=== PATIENT | female | born 1960 | race African-American/Black ===

== ENCOUNTER 2016-06-08 08:29 | Emergency (ER) | payer OTHER ==
[2016-06-08 08:53] LABS: Hematocrit 47.4 % (37.0-47.0); Hemoglobin 17.3 gm/dL (12.5-16.0); Mean Cell Volume 81.9 fl (78-100); Mean Corpuscular Hemoglobin 29.9 pg (27-31); Mean Corpuscular Hgb Conc 36.5 g/dl (32-36); Mean Platelet Volume 9.7 fl (6.0-9.5); Neutrophil % 30.5 % (42-75.0); Platelet Count 203 K/mm3 (150-450); Red Blood Count 5.79 M/mm3 (4.2-5.4); Red Cell Distribution Width 12.7 % (11.5-14.0); White Blood Count 3.2 K/mm3 (4.0-10.5)
[2016-06-08 09:11] LABS: Albumin * 3.9 gm/dl (3.4-5.0); Anion Gap 17.1 mmol/L (6.8-13.8); BUN/Creatinine Ratio 14.7 (9.0-21.6); Bilirubin, Total 0.5 mg/dL (0.0-1.1); Ca. Corrected For Albumin 8.3 mg/dL (8.4-10.2); Calcium * 8.5 mg/dL (7.9-10.9); Carbon Dioxide 23.7 mmol/L (24-32.6); Potassium 3.8 mmol/L (3.4-4.6); Total Protein 8.1 gm/dL (6.2-8.2)
[2016-06-08] MEDS ORDERED: DIATRIZOATE MEGLU/DIATRIZO SOD 30 ML BTL ONE (09:31)
[2016-06-08] MEDS ORDERED: DIATRIZOATE MEGLU/DIATRIZO SOD 30 ML BTL PO ONE (09:33)
[2016-06-08 11:20] LABS: Urine Bilirubin Negative (NEGATIVE); Urine Blood 50 /ul (NEGATIVE); Urine Ketone Negative (NEGATIVE); Urine Nitrite Negative (NEGATIVE); Urine Protein 30 mg/dL (NEGATIVE); Urine Specific Gravity >=1.030 SP.GR. (1.005-1.010); Urine Urobilinogen Normal (NORMAL); Urine pH 5.5 pH (5.0-7.0)
[2016-06-08 11:32] LABS: Urine Appearance Clear; Urine Bacteria 1+; Urine Color Yellow; Urine RBC 0-5 /hpf (0-5); Urine WBC None Seen /hpf (0-5)
[2016-06-08 11:56] VITALS: BP 115/79
--- NOTE | 2016-06-08 12:31 | ERNOTE ---
Abdominal HPI - Narrative Date of Service: 06/08/16 - General Chief Complaint: Abdominal Pain Time Seen by Provider: 06/08/16 08:46 Source: patient Exam Limitations: no limitations - Immun/Allergies/Home Medications Immunizatons: IMMUNIZATION HX Immunizations Up to Date Yes History of Influenza Vaccine No Hx Pneumococcal Vaccination No Allergies/Adverse Reactions: Allergies divalproex sodium [From Depakote] Adverse Reaction (Intermediate, Verified 06/08 08:37) SLURRED SPEECH, OFF BALANCE ibuprofen Adverse Reaction (Mild, Verified 06/08/16 08:37) UPSET STOMACH, N/V Home Medications: HOME MEDICATIONS Albuterol Sulfate [Proair Hfa] 1 - 2 puff IH Q4H PRN #1 inhaler 06/08/16 [Last Taken Unknown] Azithromycin [Zithromax] 500 mg PO NOW #6 tab 06/08/16 [Last Taken Unknown] - History of Present Illness Narrative: Patient presents to the ED with cough and upper abdominal pain. She relates she has been coughing hard for over a week and that with her cough her upper abdomen especially on the left has been hurting. The main reason she came in was because of the cough and her upper abdominal pain with the cough. The upper abdominal pain has been constant for 7 days. No fever or vomiting. Has not seen anyone else about this. Moderate pain right now. Timing: constant Quality: aching Modifying Factors - (Improves): Present: other - none Modifying Factors - (Worsens): Present: other - cough Associated Symptoms: Present: other - cough. Absent: chest pain, fever/chills, vomiting, shortness of breath Prior Treatment: Absent: recently seen Review of Systems - Review of Systems Constitutional: Absent: fever EYE: Present: no symptoms reported ENT: Present: no symptoms reported Respiratory: Present: cough. Absent: shortness of breath Cardiology: Absent: chest pain Gastrointestinal/Abdominal: Absent: nausea, vomiting Genitourinary: Absent: dysuria Skin: Absent: rash - Patient's Past Medical History Patient History - Medical: Headache Patient History - Cardiac/Respiratory: Hypertension, Hyperlipidemia Patient History - Cancer: No Hx of Cancer Patient History - Surgical Procedures: Cholecystectomy, Tubal Ligation, Other Patient History - Other: None - Family History Mother Family History - Medical: , Diabetes Type 2 Insulin Dependent Family History - Cardiac/Respiratory: CVA/Stroke, Hypertension, Hyperlipidemia Dad Family History - Medical: Family History - Cardiac/Respiratory: No pertinent hx - Social History Living Situations: spouse Smoking Status: Current every day smoker Have you smoked in the past 12 months: Yes Alcohol Use: occasionally Drug Use: none - Immunizations Immunizations Up to Date: Yes Hx Pneumococcal Vaccination: No History of Influenza Vaccine: No Physical Exam - Physical Exam General Appearance: Present: alert, no apparent distress, other - occasional cough Eye Exam: Normal inspection: bilateral, PERRL: bilateral Ears, Nose, Throat: Present: normal ENT inspection. Absent: pharyngeal swelling , tonsillar exudate Neck: Present: normal inspection, nontender Respiratory: Present: no respiratory distress, no accessory muscle use, chest nontender, other - tubular breath sounds left base. No distress, no active wheezing Cardiovascular/Chest: Present: regular rate, rhythm, normal peripheral pulses Gastrointestinal/Abdominal: Present: normal bowel sounds, nondistended, soft, other - Mild tendenress left upper abdomen. No guarding or rebound. 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 Absent: skin rash ED Progress - Results and Orders Patient's Lab Results:: I have reviewed the patient's lab results. - Vital Signs Patient's Vital Signs:: I have reviewed the patient's vital signs. Vital Signs: Vital Signs 06/08/16 06/08/16 06/08/16 08:34 09:51 10:43 Temperature 36.1 C L Pulse Rate 90 100 78 Respiratory 14 18 16 Rate Blood Pressure 135/98 121/88 117/68 O2 Sat by Pulse 97 99 98 Oximetry 06/08/16 11:55 Temperature Pulse Rate 73 Respiratory 16 Rate Blood Pressure 115/79 O2 Sat by Pulse 99 Oximetry - X-Ray X-Ray #2 X-Ray: abdomen Interpretation: Reviewed by me X-ray Comments: CHest and abdomen x-ray reports reviewed by me - CT/Ultrasound CT/Ultrasound Narrative: CT report radiology report reviewed. - Progress/Reassessment Chief Complaint: Abdominal Pain Progress Note-Subjective: 06/08/16 12:24 No clear etiology. Nothing would suggest PE, aortic dissection, ACS or other intra-thoracic etiology. Will treat as bronchitis. No clear evidence of abdominal surgical process. Nothing to suggest pancreatitis. She feels like going home. I discussed warning signs and reasons to return as well as the need for close f/u. nothing to suggest biliary obstruction. Departure - Departure Clinical Impression: Cough, Abdominal pain Disposition: Home self-care Instructions: Cough, Adult, [id number] Additional Instructions: See your doctor tomorrow for a re-check. Take antibiotics as directed. Inhaler for cough. Return here for fever, chest pain, trouble breathing, vomiting, increased abdominal pain or if your condition worsens or changes in any way. Referrals: Edward Gonzalez MD [Primary Care Provider] - Prescriptions: Albuterol Sulfate [Proair Hfa] 1 - 2 puff IH Q4H PRN #1 inhaler PRN Reason: Shortness Of Breath Azithromycin [Zithromax] 500 mg PO NOW #6 tab
== END 2016-06-08 12:40 | disposition home or self-care (01) ==
LOC: ER 08:29
DX: R10.9 Unspecified abdominal pain (principal); R05 Cough; F17.210 Nicotine dependence, cigarettes, uncomplicated

== ENCOUNTER 2019-09-15 10:54 | Observation (INO) ==
[2019-09-15 11:44] LABS: ALT 29 U/L (19-67); AST 15 U/L (0-48); Alkaline Phosphatase * 57 U/L (50-170); Amylase * 118 U/L (25-115); Anion Gap 11.5 mmol/L (6.8-13.8); BUN/Creatinine Ratio 14.7 (9.0-21.6); Bilirubin, Total 0.5 mg/dL (0.0-1.1); Blood Urea Nitrogen 11 mg/dL (3-23); CK Total * 80 U/L (0-259); CKMB 0.8 ng/mL (0.0-9.0); Calcium * 9.3 mg/dL (7.9-10.9); Carbon Dioxide 30.7 mmol/L (24-32.6); Chloride 105 mmol/L (97-106); Glucose * 99 mg/dL (70-110); Lipase 81 U/L (73-393); Potassium 4.2 mmol/L (3.4-4.6); Sodium 143 mmol/L (132-142); Total Protein 7.6 gm/dL (6.2-8.2); Troponin I Less than 0.017 ng/mL (0.00-0.10)
[2019-09-15] MEDS ORDERED: MORPHINE SULFATE 2 MG/ML DISP.SYRIN IV PRN (11:51)
--- NOTE | 2019-09-15 12:04 | HP ---
Chief Complaint - Chief Complaint Date of Service: 09/15/19 Time of Service: 12:03 Chief Complaint: Chest pain radiating to left arm History of Present Illness: 59 year old - [place] Female with past medical history of HTN, Tobacco abuse, hHLD, and Anxiety present to clinic with complaints of chest pain radiating to her left arm for 4 days progressively getting worse. Woke up early this morning diaphoretic and chest pain radiating to left arm. Called in this morning because symptoms were not being relieved with aspirin, and symptoms would occur both at rest and with exertion. Took baby aspirin before coming into clinic. Patient denies SOB. Patient denies any recent use of alcohol. Denies an reflux symptoms. Seen in the ER on 09/11/2019 for similar symptoms, thorough cardiac workup completed received SL nitro and Aspirin and patient discharged home. Upon arrival symptoms have not completely resolved. Vital signs concerning for bradycardia and initial cardiac workup concerning for ECG changes in the anterolateral leads in comparison to ECG completed 09/10. Troponins are unremarkable. Patient received aspirin chewable 381 mg in clinic and Nitro SL ordered to be administered once she has been admitted to the floor. Discussed ECG findings and advised will admit to rule acute [place]. Patient voiced understanding and is agreeable with plan. Medical History (Last Reviewed 09/15/19 @ 12:26 by Mellissa Lyman RN) Essential hypertension (Chronic) Onset Date: ~06/26/13 Diverticulosis (Chronic) Onset Date: ~08/14/17 CT Abd/Pelvis on 08/14/17 done at [facility] Anxiety (Chronic) Onset Date: Unknown Anemia (Chronic) Onset Date: Unknown Encounter for replacement of pancreatic stent Onset Date: ~12/19/17 Dyslipidemia Onset Date: Unknown GERD (gastroesophageal reflux disease) Onset Date: ~01/26/14 Low back pain Onset Date: ~02/24/14 Sickle cell anemia Onset Date: Unknown Stress incontinence, female Onset Date: Unknown Tobacco abuse Onset Date: Unknown Bronchospasm Onset Date: Unknown Chest pain Onset Date: Unknown Costochondritis Onset Date: Unknown Hiatal hernia Onset Date: ~06/09/14 Dr. Miranda Hypokalemia Onset Date: Unknown Migraine Onset Date: Unknown Surgical History: Surgical History (Last Reviewed 09/15/19 @ 12:27 by Mellissa Lyman RN) History of esophagogastroduodenoscopy (EGD) Onset Date: ~09/25/17 10/13/13: [place] - mild chronic gastritis, clotest negative 06/09/14: Clotest negative 09/25/17: [place] [facility] H/O barium enema Onset Date: ~06/09/14 Tortuous colon H/O colonoscopy Onset Date: ~09/25/17 2005: [place] - internal hemorrhoids 2015: [place] - incomplete H/O removal of cyst Onset Date: ~03/2005 H/O tubal ligation Onset Date: ~1979 History of cholecystectomy Onset Date: ~2005 History of hysterectomy Onset Date: ~1997 1996 and 1997 [facility] ovaries intact History of liver biopsy Onset Date: ~2005 S/P foot surgery, left Onset Date: ~10/31/00 Dr. Hernadez Family History: Family History (Last Reviewed 09/15/19 @ 12:27 by Mellissa Lyman RN) Brother Colon cancer Brother History of cardiac murmur Father , age 72 Colon cancer Mother , age 65 Lupus Diabetes CVA (cerebral vascular accident) Sister Seizures Sister Breast cancer Social History: (Last Reviewed 09/15/19 @ 12:28 by Mellissa Lyman RN) Social History: adopted: No care home: No lives independently: Yes household members: spouse current occupational status: employed current occupation: [employer] Highest education level completed: GED or equivalent Service: No Tobacco: Smoking Status: Current every day smoker tobacco type: cigarettes Smoking cigarettes per day: 3 Alcohol: alcohol intake: current Alcohol type: wine alcohol intake frequency: holiday/special occasion Substance Use: substance use type: does not use Dietary Habits: caffeine: No Review Of Systems (GEN) - Review of Systems Generalized/Overall Review: Present: Diaphoresis. Absent: Weakness, Fever, Fatigue EENTM: Present: No Symptoms Reported Respiratory: Absent: Cough, Shortness of Breath, Orthopnea Cardiac: Present: Chest Pain, Palpitations. Absent: Edema, Syncope Abdominal: Absent: Nausea, Vomiting, Abdominal Pain Genitourinary: Present: No Symptoms Reported Musculoskeletal: Present: No Symptoms Reported Neurological: Absent: Headache, Weakness Skin: Absent: Dryness Endocrine: Present: Excessive Sweating. Absent: Intolerance to Cold, Intolerance to Heat Immunizations: IMMUNIZATION HX Immunizations Up to Date Yes History of Influenza Vaccine Yes Hx Pneumococcal Vaccination Yes Allergies/Adverse Reactions: Allergies Allergy/AdvReac Type Severity Reaction Status Date / Time lisinopril Allergy Severe Verified 09/15/19 12:28 divalproex sodium AdvReac Intermediate SLURRED Verified 09/15/19 12:28 [From Depakote] SPEECH, OFF BALANCE ibuprofen AdvReac Mild UPSET Verified 09/15/19 12:28 STOMACH, N/V Home Medications: HOME MEDICATIONS Carvedilol [Coreg] 3.125 mg PO Q12H 09/15/19 [Last Taken Unknown] aspirin 325 mg tablet 325 mg PO DAILY 09/15/19 [Last Taken Unknown] Exam - Exam Constitutional: Present: Alert, Oriented x3, Cooperative, Well developed, Well nourished, Mild distress ENT Exam: Present: hearing grossly normal Eye Exam: bilateral eye: normal inspection, PERRL Neck: Present: non-tender, full range of motion, supple, normal inspection Back Exam: Present: normal inspection Respiratory: Present: lungs clear, normal breath sounds, no respiratory distress, no accessory muscle use, No rales, No wheezing Cardiovascular/Chest: Present: no edema, no gallop, no JVD, no murmur, bradycardia - sinus bradycardia Peripheral Pulses: dorsalis-pedis (R): 2+, dorsalis-pedis (L): 2+ Abdomen: Present: Normal bowel sounds, soft /Rectal: Present: Exam deferred Extremity: Present: normal range of motion, non-tender, normal inspection, no pedal edema, no calf tenderness, normal capillary refill Skin Exam: Present: normal color, warm/dry, no cyanosis Neurologic: Present: alert, normal mood/affect, oriented x 3 Appearance: Present: appropriate appearance, appropriate insight, no memory impairment Eye contact: Present: cooperative, good eye contact Thoughts: Present: normal thought pattern Diagnostic Studies: Abnormal Lab Results 09/15/19 Range/Units 11:02 Sodium 143 H (132-142) mmol/L Plasma Sodium 143 H (130-142) mmol/L Amylase 118 H (25-115) U/L Laboratory Results Sodium 143 mmol/L (132-142) H 09/15/19 11:02 Plasma Sodium 143 mmol/L (130-142) H 09/15/19 11:02 Potassium 4.2 mmol/L (3.4-4.6) 09/15/19 11:02 Chloride 105 mmol/L (97-106) 09/15/19 11:02 Carbon Dioxide 30.7 mmol/L (24-32.6) 09/15/19 11:02 Anion Gap 11.5 mmol/L (6.8-13.8) 09/15/19 11:02 BUN 11 mg/dL (3-23) 09/15/19 11:02 Creatinine 0.75 mg/dL (0.4-1.4) 09/15/19 11:02 Est GFR (Non-Af Amer) 101 mL/min (60-130) 09/15/19 11:02 BUN/Creatinine Ratio 14.7 (9.0-21.6) 09/15/19 11:02 Random Glucose 99 mg/dL (70-110) 09/15/19 11:02 Calcium 9.3 mg/dL (7.9-10.9) 09/15/19 11:02 Calcium Adj for Albumin 9.0 mg/dL (8.4-10.2) 09/15/19 11:02 Total Bilirubin 0.5 mg/dL (0.0-1.1) 09/15/19 11:02 AST 15 U/L (0-48) 09/15/19 11:02 ALT 29 U/L (19-67) 09/15/19 11:02 Alkaline Phosphatase 57 U/L (50-170) 09/15/19 11:02 Creatine Kinase 80 U/L (0-259) 09/15/19 11:02 CK-MB (CK-2) 0.8 ng/mL (0.0-9.0) 09/15/19 11:02 CK-MB (CK-2) Rel Index 1.0 (0.0-3.6) 09/15/19 11:02 Troponin I Less than 0.017 ng/mL (0.00-0.10) 09/15/19 11:02 C-Reactive Prot, Quant Less than 0.2 mg/dL (0.0-0.9) 09/15/19 11:02 Total Protein 7.6 gm/dL (6.2-8.2) 09/15/19 11:02 Albumin 4.0 gm/dl (3.4-5.0) 09/15/19 11:02 Amylase 118 U/L (25-115) H 09/15/19 11:02 Lipase 81 U/L (73-393) 09/15/19 11:02 Assessment/Plan - Narrative Narrative: Assessment/Plan 59 year old F admitted [place] rule out. (1) Chest pain, rule out acute myocardial infarction - Trend troponins q6h x 2 - Repeat EKG with troponin draw - Complete cardiac workup outpatient - D/C with 48 hour Holter Monitor - No beta-jim to be administered due to bradycardia (2) First degree heart block by electrocardiogram associated with asymptomatic sinus bradycardia by electrocardiogram - Asymptomatic - Will continue to monitor Fluids, Electrolyte and Nutrition: DVT ppx: Heparin 5000 SC units Q12H CODE STATUS: FULL CODE Disposition: - Will trend troponins and repeat EKG to monitor for any changes -Currently asymptomatic bradycardia, patient becomes symptomatic will consider atropine failure to improve will transfer [facility] or consult cardiology - Anticipate discharge in AM - Assessment/Plan (1) Chest pain, rule out acute myocardial infarction Problem: Acute (2) First degree heart block by electrocardiogram Problem: Acute (3) Sinus bradycardia by electrocardiogram Problem: Acute
[2019-09-15] MEDS: NITROGLYCERIN 0.4 MG/TAB BTL SL PRN ×3 (12:22→12:37)
[2019-09-15] MEDS: HEPARIN SODIUM,PORCINE 5,000 UNITS/ML VIAL SC SCH (13:33)
[2019-09-16] MEDS: HEPARIN SODIUM,PORCINE 5,000 UNITS/ML VIAL SC SCH (00:15)
[2019-09-16 06:04] LABS: Hematocrit 38.8 % (37.0-47.0); Hemoglobin 13.8 gm/dL (12.5-16.0); Mean Cell Volume 85.3 fl (78-100); Mean Corpuscular Hemoglobin 30.3 pg (27-31); Mean Corpuscular Hgb Conc 35.6 g/dl (32-36); Mean Platelet Volume 9.1 fl (8-12.5); Neutrophil # 2.5 K/mm3 (1.3-6.0); Neutrophil % 51.7 % (42-75.0); Platelet Count 269 K/mm3 (150-450); Red Blood Count 4.55 M/mm3 (4.2-5.4); Red Cell Distribution Width 13.4 % (11.5-14.0); White Blood Count 4.9 K/mm3 (4.0-10.5)
[2019-09-16 06:14] LABS: Albumin * 3.6 gm/dl (3.4-5.0); Anion Gap 11.2 mmol/L (6.8-13.8); BUN/Creatinine Ratio 12.7 (9.0-21.6); Bilirubin, Total 0.7 mg/dL (0.0-1.1); Ca. Corrected For Albumin 8.7 mg/dL (8.4-10.2); Calcium * 8.7 mg/dL (7.9-10.9); Carbon Dioxide 30.5 mmol/L (24-32.6); Potassium 3.7 mmol/L (3.4-4.6)
[2019-09-16 07:27] LABS: Amylase * 112 U/L (25-115); Lipase 97 U/L (73-393)
--- NOTE | 2019-09-16 07:40 | DS ---
(1) Chest pain, rule out acute myocardial infarction Problem: Acute (2) First degree heart block by electrocardiogram Problem: Acute (3) Sinus bradycardia by electrocardiogram Problem: Acute (4) Serum amylase elevated Problem: Acute (5) GERD (gastroesophageal reflux disease) Problem: Acute Qualifiers: Esophagitis presence: esophagitis presence not specified Qualified Code(s): K21.9 - Gastro-esophageal reflux disease without esophagitis Date of Discharge:: 09/16/19 Hospital Course: 59 year old - Chinese Female with past medical history of HTN, Tobacco abuse, Alcohol abuse, Chronic pancreatitis, GERD, HLD, and Generalized anxiety disorder, presented to clinic with complaints of chest pain radiating to her left arm for 4 days progressively getting worse. Woke up yesterday morning diaphoretic and with substernal chest pain. Pain is described is tight in nature, intermittent, radiates to left arm, occurs both at rest and with exertion, mildly alleviated with aspirin, no aggravating factors known to patient. Associated with intermittent palpitations that resolve spontaneously. Patient denies SOB, recent use of alcohol or reflux symptoms. Seen in the ER on 09/11/2019 for similar symptoms, thorough cardiac workup completed received SL nitro and Aspirin and patient discharged home. Upon arrival symptoms have not completely resolved. Vital signs concerning for bradycardia and initial cardiac workup concerning for ECG changes in the anter olateral leads in comparison to ECG completed 09/10. Troponins were unremarkable. Patient received aspirin chewable 81 mg in clinic and Nitro SL ordered to be administered once admitted to the floor. Patient admitted for MD rule out. Troponins trended x3 and remained unremarkable. No acute changes on ECG. Patient is still bradycardic and asymptomatic. No acute episodes of chest pain overnight. Advised will complete further cardiac evaluation outpatient. Will discharge with a 48 Holter monitor to further evaluate palpitations. At follow-up visit will refer to cardiology. Advised to discontinue all blood pressure medications. Advised I will discuss case with Dr. Real of [facility] (gastroenterology) for further recommendations, in regards to isolated elevated amylase and since they have been managing chronic pancreatitis. Patient also presenting symptoms concerning of GERD, which has never been previously evaluated. Advised due to history of tobacco abuse, alcohol abuse which has significantly decreased will prescribe Carafate 4 times a day and pantoprazole 2 times a day, and refer to general surgery for EGD and colonoscopy. Patient voiced understanding and is agreeable with plan. Follow-up appointment with primary care provider: -Dr. Padgett, will be scheduled within 1 week from discharge. Referrals at hospital follow-up appointment: -General surgery -Cardiology -Gastroenterology Procedures Performed: none Care Plan Goals: - Refer to cardiology for evaluation of bradycardia and first degree block - Due to history of pancreatitis, will discuss with Dr. Real of [facility] (GI) in regards to elevated amylase -Refer to General Surgery for EGD and Colonoscopy at follow up appointment Plan of Treatment: - 48 hour holter monitor - Daily aspirin and SL nitro PRN for chest pain - Discontinue all Hypertension medication. - Carafate 1 gram QID and Pantoprazole 40 mg PO BID x 1 month - Stool antigen test for H. pylori. outpatient as per recommendation by Dr. Miranda Health Concerns: - Unstable angina in the setting of bradycardia Assessment: - Unstable Angina - Asymptomatic Bradycardia - First degree block - Isolated elevate amylase in the setting of chronic pancreatitis - GERD Results and Findings: Lab Pending Results 09/15/19 11:02: Sodium 143 H, Plasma Sodium 143 H, Potassium 4.2, Chloride 105, Carbon Dioxide 30.7, Anion Gap 11.5, BUN 11, Creatinine 0.75, Est GFR (Non-Af A camron) 101, BUN/Creatinine Ratio 14.7, Random Glucose 99, Calcium 9.3, Calcium Adj for Albumin 9.0, Total Bilirubin 0.5, AST 15, ALT 29, Alkaline Phosphatase 57, Creatine Kinase 80, CK-MB (CK-2) 0.8, CK-MB (CK-2) Rel Index 1.0, Troponin I Less than 0.017, C-Reactive Prot, Quant Less than 0.2, Total Protein 7.6, Albumin 4.0, Amylase 118 H, Lipase 81 09/15/19 11:02: B-Natriuretic Peptide 90 09/15/19 15:05: Troponin I Less than 0.017 09/15/19 21:00: Troponin I Less than 0.017 09/16/19 05:50: WBC 4.9, RBC 4.55, Hgb 13.8, Hct 38.8, MCV 85.3, MCH 30.3, MCHC 35.6, RDW 13.4, Plt Count 269, MPV 9.1, Immature Gran % (Auto) 0.20, Immature Gran # (Auto) 0.01, Neutrophils % 51.7, Lymphocytes % 39.6, Monocytes % 6.5, Eosinophils % 1.8, Basophils % 0.2, Nucleated RBC % 0.0, Neutrophils # 2.5, Lymphocytes # 1.94, Monocytes # 0.3, Eosinophils # 0.1, Absolute Basophils 0.0 09/16/19 05:50: Sodium 142, Plasma Sodium 142, Potassium 3.7, Chloride 104, Carbon Dioxide 30.5, Anion Gap 11.2, BUN 10, Creatinine 0.79, Est GFR (Non-Af Amer) 95, BUN/Creatinine Ratio 12.7, Random Glucose 100, Calcium 8.7, Calcium Adj for Albumin 8.7, Total Bilirubin 0.7, AST 15, ALT 28, Alkaline Phosphatase 68, Total Protein 7.0, Albumin 3.6 Discharge Location: Home Disposition: Home self-care Condition: Stable Discharge Activity: Activity as tolerated Discharge Diet: General/regular food Referrals: Guero Padgett MD [Primary Care Provider] - One Week (1 WEEK) Problem Oriented Discharge Instructions to Patient/Family: Angina, [id number], Bradycardia, Adult, Heartburn, [id number], Nonspecific Chest Pain, Adult, [id number] Complete Home Medications List: Complete Home Medication List: aspirin 325 mg tablet 325 mg PO DAILY 09/15/19 Nitroglycerin [Nitrostat] 0.4 mg SUBLINGUAL PRN PRN #30 btl 09/16/19 Pantoprazole Sodium 20 mg PO BID #60 tablet. 09/16/19 Rosuvastatin Calcium [Crestor] 20 mg PO HS #30 tab 09/16/19 Sucralfate [Carafate] 1 gm PO QID #120 tab 09/16/19
[2019-09-16 10:49] VITALS: BP 135/79
[2019-09-16] MEDS ORDERED: ROSUVASTATIN CALCIUM 20 MG TABLET PO SCH (21:00)
== END 2019-09-16 11:05 | disposition home or self-care (01) ==
LOC: MS 10:54 → LAB 10:54
PROVIDERS: ADMIT Family Medicine; ATTEND Family Medicine
CPT/HCPCS: 36415; 71020; 71046; 80053; 82150; 82550; 82553; 83519; 83690; 83880; 84484; 85025; 86140; 93005; 96372; G0378